=== PATIENT | female | born 1995 | race Caucasian/White ===

== ENCOUNTER 2017-01-08 23:00 | Emergency (ER) | payer OTHER ==
[~2017-01-08] VITALS: Ht 167.6 cm; Wt 87.1 kg
[~2017-01-08 23:00] MED LIST: ATARAX,VISTARIL25 MG PO; PREDNISONE10 M1 PO; ZANTAC300 MG PO
[2017-01-08 23:56] LABS: HEMATOCRIT 38.6 % (36.0-46.0); MCHC 34.2 G/DL (30.0-36.0); MCV 90.6 FL (83-99); MEAN PLAT.VOLUME 10.9 uM^3 (9.5-12.4); PLATELET COUNT 294 K/uL (156-360); RBC DIS.WIDTH-CV 12.4 % (11.8-14.6); RBC DIS.WIDTH-SD 40.6 % (39-53); RED BLOOD COUNT 4.26 M/uL (3.80-5.20); WHITE BLOOD COUNT 8.9 K/uL (4.1-10.2)
[2017-01-09 00:10] LABS: CHLORIDE 105 mEq/L (99-109); POTASSIUM 3.7 mEq/L (3.7-5.4); SODIUM 141 mEq/L (136-147)
[2017-01-09 00:11] LABS: GLUCOSE 92 mg/dL (70-99)
[2017-01-09 00:13] LABS: ANION GAP 13 MEQ/L (2-14)
[2017-01-09 00:15] LABS: GFR ESTIMATE (CALCULATED) > 59 mL/min/; SERUM ETHYL ALCOHOL < 10 mg/dL
[2017-01-09 00:16] LABS: UREA NITROGEN (BUN) 14 mg/dL (9-23)
[2017-01-09 00:27] LABS: QUANTITATIVE HCG < 4.0 MIU/ML
[2017-01-09 01:38] VITALS: BP 145/95
== END 2017-01-09 01:42 | disposition home or self-care (01) ==
LOC: EME 23:00
PROVIDERS: Emergency Medicine
DX: F32.9 Major depressive disorder, single episode, unspecified (principal); F17.200 Nicotine dependence, unspecified, uncomplicated; Z88.0 Allergy status to penicillin
CPT/HCPCS: 80048; 84702; 85027; 90839; 99281; 99285; G0480

== ENCOUNTER 2017-09-05 02:38 | Emergency (ER) | payer OTHER ==
[~2017-09-05] VITALS: Ht 167.6 cm; Wt 78.8 kg
[2017-09-05 03:20] LABS: HEMATOCRIT 41.2 % (36.0-46.0); HEMOGLOBIN 14.5 G/DL (11.9-15.5); MCH 31.4 PG (29.0-34.0); MCHC 35.2 G/DL (30.0-36.0); MCV 89.2 FL (83-99); PLATELET COUNT 317 K/uL (156-360); RBC DIS.WIDTH-CV 12.4 % (11.8-14.6); RED BLOOD COUNT 4.62 M/uL (3.80-5.20); WHITE BLOOD COUNT 8.9 K/uL (4.1-10.2)
[2017-09-05 03:28] LABS: ALBUMIN 4.5 g/dL (3.2-4.8); CHLORIDE 105 mEq/L (99-109); POTASSIUM 3.9 mEq/L (3.7-5.4); SODIUM 140 mEq/L (136-147)
[2017-09-05 03:30] LABS: GLUCOSE 126 mg/dL (70-99); TOTAL PROTEIN 7.4 g/dL (6.4-8.3)
[2017-09-05 03:32] LABS: TOTAL BILIRUBIN 0.5 mg/dL (0.0-1.0)
[2017-09-05 03:34] LABS: ALKALINE PHOSPHATASE 73 IU/L (3-129); CREATININE 0.9 mg/dL (0.6-1.3); GFR ESTIMATE (CALCULATED) > 59 mL/min/
[2017-09-05 03:35] LABS: AST (GOT) 20 IU/L (2-34); UREA NITROGEN (BUN) 15 mg/dL (9-23)
[2017-09-05 03:37] LABS: ALT (GPT) 19 IU/L (3-49)
[2017-09-05 03:43] LABS: QUANTITATIVE HCG < 4.0 MIU/ML
[2017-09-05 07:18] LABS: APPEARANCE SL.HAZY ((CLEAR)); BILIRUBIN NEGATIVE; BLOOD NEGATIVE; COLOR YELLOW ((YELLOW)); GLUCOSE (STRIP) NEGATIVE; KETONES 20; LEUKOCYTES NEGATIVE; NITRITE NEGATIVE; PROTEIN (STRIP) 100; SPECIFIC GRAVITY 1.026 (1.000-1.030); UROBILINOGEN 0.2 MG/DL (0.2-1.0)
[2017-09-05 07:22] LABS: BACTERIA RARE /HPF; EPITHELIAL CELLS RARE /HPF; HYALINE CASTS 0-5 /LPF; MUCUS 2+ /LPF; RED BLOOD CELLS NONE SEEN /HPF (0-5); UCUL ADDED? NO; WHITE BLOOD CELLS 0-5 /HPF (0-5)
[2017-09-05] MEDS ORDERED: ZOFRAN ODT4 MG PO (08:52)
[2017-09-05] MEDS ORDERED: BENTYL20 MG PO (08:52)
[2017-09-05 09:14] VITALS: BP 116/63
== END 2017-09-05 09:15 | disposition home or self-care (01) ==
LOC: EME 02:38
DX: R19.7 Diarrhea, unspecified (principal); R11.2 Nausea with vomiting, unspecified; B96.20 Unspecified Escherichia coli [E. coli] as the cause of diseases classified elsewhere; R10.9 Unspecified abdominal pain; R51 Headache; Z88.0 Allergy status to penicillin; F17.200 Nicotine dependence, unspecified, uncomplicated
CPT/HCPCS: 80053; 81003; 84702; 85027; 87045; 87506; 99281; 99285; J2405; J7030